=== PATIENT | male | born 2000 | race Caucasian/White ===

== ENCOUNTER 2020-09-18 13:44 | Emergency (ER) | payer OTHER ==
[~2020-09-18] VITALS: Ht 165.1 cm; Wt 77.1 kg
--- NOTE | 2020-09-18 13:44 | NUR ---
Placed in bed 4
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
[2020-09-18 13:46] VITALS: BP_SYST 143
--- NOTE | 2020-09-18 14:00 | NUR ---
[place] [employer] at bedside with patient.
--- NOTE | 2020-09-18 14:13 | NUR ---
ER Dr. Siegel at bedside examining patient.
[2020-09-18] MEDS ORDERED: IBUPROFEN 800 MG TABLET PO ONE (14:30)
--- NOTE | 2020-09-18 14:40 | NUR ---
Radiology at bedside for x-rays
[2020-09-18] MEDS ORDERED: IBUPROFEN 800 MG TABLET ONE (14:44)
[2020-09-18 15:17] VITALS: BP_SYST 143
--- NOTE | 2020-09-18 15:17 | NUR ---
Patient given written and verbal discharge instructions and verbalizes understanding. ER MD discussed with patient the results and treatment provided. Patient in stable condition. ID arm band removed. Rx of Motrin given. Patient educated on pain management and to follow up with PMD. Pain Scale 0. Opportunity for questions provided and answered. Medication side effect fact sheet provided.
== END 2020-09-18 15:17 | disposition home or self-care (01) ==
LOC: SED 13:44
DX: S63.592A Other specified sprain of left wrist, initial encounter (principal); S56.811A Strain of other muscles, fascia and tendons at forearm level, right arm, initial encounter; R03.0 Elevated blood-pressure reading, without diagnosis of hypertension; J45.909 Unspecified asthma, uncomplicated; V29.9XXA Motorcycle rider (driver) (passenger) injured in unspecified traffic accident, initial encounter; Y93.89 Activity, other specified; Y92.89 Other specified places as the place of occurrence of the external cause; Y99.8 Other external cause status
CPT/HCPCS: 73090; 99284

== ENCOUNTER 2020-09-19 10:31 | Emergency (ER) | payer OTHER ==
[~2020-09-19] VITALS: Ht 160 cm; Wt 92.5 kg
[2020-09-19 10:31] VITALS: BP_SYST 122
--- NOTE | 2020-09-19 10:34 | NUR ---
Patient triaged and placed in waiting room. VSS and patient appears in no acute distress at this time. Awaiting available bed, and MD notified of need for MSE.
--- NOTE | 2020-09-19 10:35 | NUR ---
Patient came for a checkup of his arm. Patient was here yesterday.
--- NOTE | 2020-09-19 10:35 | NUR ---
ER Dr. Mullins in waiting room examining patient.
--- NOTE | 2020-09-19 12:10 | NUR ---
Patient given written and verbal discharge instructions and verbalizes understanding. ER MD discussed with patient the results and treatment provided. Patient in stable condition. ID arm band removed. Patient educated on pain management and to follow up with PMD. Pain Scale 0/10. Opportunity for questions provided and answered. Medication side effect fact sheet provided.
[2020-09-19 12:24] VITALS: BP_SYST 118
== END 2020-09-19 12:24 | disposition home or self-care (01) ==
LOC: SED 10:31
DX: S52.121A Displaced fracture of head of right radius, initial encounter for closed fracture (principal); J45.909 Unspecified asthma, uncomplicated; W18.39XA Other fall on same level, initial encounter; Y93.89 Activity, other specified; Y92.89 Other specified places as the place of occurrence of the external cause; Y99.8 Other external cause status
CPT/HCPCS: 99284